=== PATIENT | male | born 1950 | race Caucasian/White ===

== ENCOUNTER 2022-11-22 09:30 | Outpatient (CLI) | payer MEDICARE, SELFPAY ==
--- NOTE | 2022-12-06 12:51 | WPDSLEEPSTUD ---
Sleep Study Date of Study: 11/22/22 Ordering Provider: Edilma Martell Interpreting Physician: Leena Montero MD Sleep Study Type: ASV Height: 1.78 m Weight: 113.398 kg Body Mass Index: 35.9 Neck Circumference (inches): 18.25 [place]: 15 Reason for Sleep Study Excessive daytime sleepiness; treatment emergent central apneas; increased central apneas on compliance download * 07/17/2022 - echo at [facility] OutPatient testing = EF 60%, mechanical mitral valve replacement, tricuspid valve repair Sleep History Mu Mosqueda is a 72-year-old man with obstructive sleep apnea syndrome who is been using BiPAP therapy, has elevated central apneas on his download. He had a brainstem stroke 6 years ago and atrial fibrillation with a mechanical aortic valve. His echo shows EF 60%. He has been on BiPAP 03/07. He presents now for an ASV titration. He has difficulty falling asleep and staying asleep. He wakes up during the night and has excessive daytime sleepiness. He occasionally awakens from sleep feeling short of breath. He does not awaken at night with heartburn, belching or coughing. He rarely snores and rarely is it loud enough that others complain about it. He rarely has difficulty sleeping with a cold. He does not wake up gasping for breath at night. He occasionally has breathing problems at night observed by others. He does not sweat excessively at night. He frequently falls asleep during the day however he never falls asleep involuntarily or while driving. He does not have loss of muscle tone with strong emotion. He does not have daytime difficulties due to excessive sleepiness. He does not feel paralyzed on waking or falling asleep. He does not have vivid dreamlike scenes upon awakening or falling asleep. He does not feel afraid to go to sleep. He does not have nightmares. He rarely remembers his dreams. He rarely has racing thoughts. He does not feel sad, depressed, or anxious. He does not have muscular tension. He occasionally notices parts of his body jerking. He occasionally kicks at night. He occasionally has crawling and aching feelings in his legs. He rarely has any kind of leg pain at night. He does not have morning jaw pain. He does not grind his teeth during sleep. He frequently is bothered by pain during the day P he rarely is awakened by pain at night. He rarely wakes up with sore achy muscles. He occasionally wakes up with pain in the neck and spine. He has fatigue and concentration difficulties. Normal bedtime is 10:00 p.m., taking 15-30 minutes to fall asleep, typically waking 3-4 times at night for unclear reasons. He may take him 10 to be minutes to get back to sleep. He wakes the morning between 5 and 6:00 a.m.. He keeps the same schedule on weekends. He estimates getting 6-8 hours of sleep at night. He takes naps in the afternoon or evening. A short nap lasting 10 or 15 minutes may be refreshing. He is drowsy for 2 hours after waking. He feels better in the evening compared to earlier in the day. Habits: Quit tobacco 1984. Head caffeine 2 servings of tea per day. No alcohol or recreational substance. [facility] Past Medical History Medical History (Updated 12/06/22 @ 13:07 by Leena Montero MD) Atrial fibrillation Hepatitis C antibody test negative (~12/2016) Hypertension Obstructive sleep apnea Rotator cuff arthropathy of left shoulder (~12/2017) Rotator cuff arthropathy of right shoulder (~08/2015) Surgical History Surgical History H/O colonoscopy (~08/2011) H/O mitral valve replacement (~12/2001) H/O prostatectomy (~2000) Family History Family History Father Family history of coronary artery disease Mother Family history of malignant neoplasm of breast in first degree relative Other Family history of elevated blood lipids No family history of cardiovascular disease
[2022-12-06 21:15] VITALS: BMI 35.9
== END 2022-11-23 07:06 | disposition home or self-care (01) ==
PROVIDERS: PCP Family Medicine
DX: G47.33 Obstructive sleep apnea (adult) (pediatric) (principal)
CPT/HCPCS: 95811